=== PATIENT | female | born 1965 | race Caucasian/White ===

== ENCOUNTER 2017-12-05 10:10 | Emergency (ER) | payer MEDICARE, SELFPAY ==
[2017-12-05 10:15] VITALS: BP 132/88; PULSE 98; RESP 14; TEMP 36.3; O2SAT 100; BMI 22.8
--- NOTE | 2017-12-05 12:05 | ED.HA ---
HPI - Headache <Ebony Main PA-C - Last Filed: 12/05/17 20:24> General Chief Complaint: Headache Stated Complaint: Lump on left side of head Time Seen by Provider: 12/05/17 12:05 Source: patient Mode of arrival: ambulatory Limitations: no limitations History of Present Illness HPI Narrative: This 52-year-old female comes in to have a bump on her head checked. She states that she awoke with this yesterday morning, thinks possibly present when she went to bed. She states that it was more swollen yesterday, and is sore to touch. She has used ice and it has gone down considerably. She denies any trauma or known bites. She states that she has a little bit of sinus pressure between her eyes, postnasal drip and cough which are typical with her smoking and allergies, but she has not had any fever or new illness. She states she has some chronic intermittent headaches due to spinal stenosis and no changes there (she would like prescriptions for naproxen and prednisone for these). She denies any vision change, difficulty chewing, or any other new symptoms on systems review, and states that even though this is better, she just wanted to have it checked out. Related Data Previous Rx's Medication Instructions Recorded naproxen 500 mg PO Q12H PRN #14 tab 12/05/17 Allergies Allergy/AdvReac Type Severity Reaction Status Date / Time amoxicillin [From Augmentin] Allergy Intermediate Vomiting Verified 12/05/17 10:18 clavulanic acid Allergy Intermediate Vomiting Verified 12/05/17 10:18 [From Augmentin] ibuprofen Allergy Intermediate Abdominal Verified 12/05/17 10:18 Pain acetaminophen Allergy Unknown Verified 12/05/17 10:18 Benzodiazepines Allergy Unknown Verified 12/05/17 10:18 hydroxyzine Allergy Unknown Verified 12/05/17 10:18 CLASS: 28:16.04 - Allergy Unknown PLEASE Uncoded 07/15/17 12:17 ANTIDEPRESSANTS CLARIFY WHICH CLASS? Review of Systems <Ebony Main PA-C - Last Filed: 12/05/17 20:24> Review of Systems All systems reviewed & are unremarkable except as noted in HPI and below PFSH <Ebony Main PA-C - Last Filed: 12/05/17 20:24> Comment: 25 py tob, no ETOH, + THC/oil Exam <ANGELES Bragg Last Filed: 12/05/17 20:24> Narrative Exam Narrative: GENERAL APPEARANCE: Patient sitting comfortably, in no distress. HEAD: No localized sinus tenderness. Left temporofrontal junction there is a small (2 mm) pink papule, and posterior to this a trace of soft tissue swelling and tenderness. No erythema. Temporal artery pulsations are normal EYES: PERRL, EOMI. EARS: Normal auditory canals, TMS intact with normal light reflexes. ORAL CAVITY: Normal oropharynx. THROAT: Clear. NECK/THYROID: Neck supple, full range of motion, no cervical lymphadenopathy. LUNGS: Clear to auscultation bilaterally, no cough on exam. HEART: RRR without murmur, nl S1, S2, no S3 or S4. EXTREMITIES: No edema DERM: No exanthem Initial Vital Signs Initial Vital Signs: Vital Signs Temperature 97.3 F L 12/05/17 10:15 Pulse Rate 98 H 12/05/17 10:15 Respiratory Rate 14 12/05/17 10:15 Blood Pressure 132/88 12/05/17 10:15 Pulse Oximetry 100 12/05/17 10:15 <Deepika Brush DO - Last Filed: 12/06/17 14:53> Initial Vital Signs Initial Vital Signs: Vital Signs Temperature 97.3 F L 12/05/17 10:15 Pulse Rate 98 H 12/05/17 10:15 Respiratory Rate 14 12/05/17 10:15 Blood Pressure 132/88 12/05/17 10:15 Pulse Oximetry 100 12/05/17 10:15 Course <ANGELES Bragg Last Filed: 12/05/17 20:24> Vital Signs - 8 hr 12/05/17 12:39 Pulse Rate 66 Respiratory Rate 18 Blood Pressure [Right Arm] 116/94 H Pulse Oximetry 99 <DO Lorraine Butcher Last Filed: 12/06/17 14:53> Vital Signs - 8 hr 12/05/17 12:39 Pulse Rate 66 Respiratory Rate 18 Blood Pressure [Right Arm] 116/94 H Pulse Oximetry 99 Discharge Plan Departure Patient Disposition: Home Clinical Impression: Localized soft tissue swelling Discharge Date/Time: 12/05/17 12:41 Interventions: ED Discharge Assessment Last Done: 12/05/17 12:40 Activity Restrictions/Additional Instructions: Please return as we talked about if you have acutely worsening symptoms. It is not really clear whether the swelling you noticed is due to some kind of minor trauma or perhaps an insect or spider bite. Since it has improved since yesterday and have not been ill, you can monitor this. Please continue ice. I have sent a prescription for naproxen to your pharmacy for you to use as well. There are multiple clinics in [facility] that may be taking new patients including [facility], [facility], [facility], and [facility]. You can also look at the hospital website for information on clinics and providers Prescriptions: New naproxen 500 mg tablet 500 mg PO Q12H PRN (Reason: pain) Qty: 14 RF: 0 <Deepika Brush DO - Last Filed: 12/06/17 14:53> Cosign ED Attending Haileyature Attestation: I was immediately available in the department for consultation. Documentation has been reviewed. I agree with assessment and plan.
[2017-12-05 12:39] VITALS: BP 116/94; PULSE 66; RESP 18; O2SAT 99
== END 2017-12-05 12:41 | disposition home or self-care (01) ==
PROVIDERS: Emergency Provider Internal Medicine; Family Provider Family Medicine; PCP Family Medicine
DX: R22.9 Localized swelling, mass and lump, unspecified (principal)
CPT/HCPCS: 99282